=== PATIENT | female | born 1965 | race Caucasian/White ===

== ENCOUNTER 2023-04-23 06:12 | Day surgery (SDC) | payer BC ==
[~2023-04-23] VITALS: Ht 160 cm; Wt 87.5 kg
[~2023-04-23 06:12] MED LIST: LEVO112T2 PO
[2023-04-23] MEDS ORDERED: ceFAZolin SOD 2 GM in IV 1 EA IV ONE (06:30)
[2023-04-23] MEDS ORDERED: LR 1,000 ML IV SCH (06:50)
[2023-04-23] MEDS ORDERED: LIDOCAINE 2% MDV 20ML VIAL As Ordered ONE (07:07)
[2023-04-23] MEDS ORDERED: GENTAMICIN SULF 80MG/2ML VIAL As Ordered ONE (07:08)
[2023-04-23] MEDS ORDERED: ACETAMINOPHEN 1000MG 100ML IV BAG As Ordered ONE (08:35)
[2023-04-23] MEDS ORDERED: propofoL 200 MG/20 ML VIAL As Ordered ONE (08:35)
[2023-04-23] MEDS ORDERED: SUGAMMADEX SODIUM 500 MG/5 ML VIAL (BRIDION) As Ordered ONE (08:35)
[2023-04-23] MEDS ORDERED: KETOROLAC 60MG 2ML VIAL As Ordered ONE (08:35)
[2023-04-23] MEDS ORDERED: MIDAZOLAM INJ 2MG/2ML VIAL As Ordered ONE (08:35)
[2023-04-23] MEDS ORDERED: ONDANSETRON 4MG 2ML VIAL As Ordered ONE (08:35)
[2023-04-23] MEDS ORDERED: METOCLOPRAMIDE INJ 10MG/2ML VIAL As Ordered ONE (08:35)
[2023-04-23] MEDS ORDERED: LIDOCAINE 2% 100MG/5ML SDV (FOR ANES.) As Ordered ONE (08:35)
[2023-04-23] MEDS ORDERED: ROCURONIUM BROMIDE 50MG/5ML VIAL As Ordered ONE (08:35)
[2023-04-23] MEDS ORDERED: dexmedeTOMIDine (4MCG/ML)200MCG/50ML BTL (PRECEDEX) As Ordered ONE (09:08)
[2023-04-23] MEDS ORDERED: ONDANSETRON 4MG 2ML VIAL IV PRN (09:35)
[2023-04-23] MEDS ORDERED: HYDROMORPHONE HCL 0.5 MG/ 0.5 ML SYRINGE IV PRN (09:35)
[2023-04-23] MEDS ORDERED: oxyCODONE 5MG TAB PO PRN (09:35)
[2023-04-23] MEDS ORDERED: fentaNYL 100 MCG/2 ML INJECTION IV PRN (09:35)
[2023-04-23 12:00] VITALS: BP 160/88; TEMP 97; O2SAT 98
== END 2023-04-23 12:05 | disposition home or self-care (01) ==
LOC: M SDC 06:12 → EDUNIT# 07:30 → M SDC 12:05
PROVIDERS: ATTEND Podiatrist
DX: M25.371 Other instability, right ankle (principal); E03.9 Hypothyroidism, unspecified; G47.30 Sleep apnea, unspecified; Z79.890 Hormone replacement therapy; Z90.710 Acquired absence of both cervix and uterus; Z88.5 Allergy status to narcotic agent; Z88.8 Allergy status to other drugs, medicaments and biological substances
CPT/HCPCS: 27698; 73630; 76000; J0131; J0665; J0690; J1100; J1170; J1580; J1885; J2250; J2405; J2765